=== PATIENT | male | born 1985 | race American Indian/Alaskan Native ===

== ENCOUNTER 2025-01-15 12:19 | Emergency (ER) | payer MEDICAID, OTHER ==
[2025-01-15] MEDS: Ketorolac 30 MG/ML SDV IM ONE (13:17)
[2025-01-15] MEDS: Acetaminophen/oxyCODONE 325-5 MG Tab PO ONE (13:18)
== END 2025-01-15 14:48 | disposition home or self-care (01) ==
LOC: JP.ED 12:19
DX: M62.838 Other muscle spasm (principal); F17.200 Nicotine dependence, unspecified, uncomplicated
CPT/HCPCS: 72040; 96372; 99283; A9270; J1885